=== PATIENT | female | born 1965 | race Caucasian/White ===

== ENCOUNTER 2017-08-22 19:22 | Emergency (ER) | payer MEDICARE, OTHER ==
[2017-08-22 20:00] VITALS: BP 148/70; PULSE 74; RESP 20; TEMP 97.8
--- NOTE | 2017-08-22 20:53 | XR ---
PROCEDURE: XR knee complete RT 3 views DATE AND TIME: 08/22/2017 8:14 PM REFERRING PHYSICIAN: Milly Karimi CLINICAL INDICATION: PHH, Pain after injury TECHNIQUE: Department protocol. COMPARISON: None FINDINGS: There is no fracture or malalignment. Degenerative joint changes are noted, most advanced medial compartment The soft tissues are unremarkable. IMPRESSION: NO ACUTE PROCESS.
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
[2017-08-22] MEDS ORDERED: IBUPROFEN 600 MG STARTER PACK 4 TAB BTL PO STA (21:18)
== END 2017-08-22 21:44 | disposition home or self-care (01) ==
LOC: EC 19:22
DX: M25.561 Pain in right knee (principal); W20.8XXA Other cause of strike by thrown, projected or falling object, initial encounter; Y92.009 Unspecified place in unspecified non-institutional (private) residence as the place of occurrence of the external cause
CPT/HCPCS: 99283